=== PATIENT | female | born 1975 | race Caucasian/White ===

== ENCOUNTER 2019-12-22 11:56 | Emergency (ER) | payer MEDICAID, OTHER ==
[2019-12-22] MEDS ORDERED: Ketorolac 30 MG/ML SDV IM ONE (13:20)
[2019-12-22] MEDS: Orphenadrine 100 MG Tab.ER PO ONE ×2 (13:30→13:32)
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
== END 2019-12-22 14:19 | disposition home or self-care (01) ==
LOC: JD.ED 11:56
DX: M25.551 Pain in right hip (principal); Z88.2 Allergy status to sulfonamides
CPT/HCPCS: 96372; 99283; J1885; A9270-GY